=== PATIENT | female | born 1950 | race Caucasian/White ===

== ENCOUNTER 2019-08-25 09:47 | Outpatient (CLI) | payer MEDICARE, OTHER, SELFPAY ==
--- NOTE | 2019-08-25 09:56 | MM_ITS ---
WS: [id number] BILATERAL DIGITAL SCREENING MAMMOGRAPHY WITH CAD CLINICAL INFORMATION: SCREENING HISTORY: Screening mammogram. No current complaints. COMPARISON: May 06, 2018 TECHNIQUE: Bilateral CC and MLO views. FINDINGS: The breasts are composed of heterogeneous fibroglandular density tissue, which can limit the detectio n of small underlying mass lesions. No suspicious mass, asymmetry, calcifications, or architectural d istortion. No evidence of malignancy. MM/[id number] IMPRESSION: BI-RADS: 1-Negative FOLLOW UP: 1 Year Follow-up Recommend return to annual screening mammography.
== END 2019-08-25 09:48 | disposition home or self-care (01) ==
LOC: RADSHAW 09:53
PROVIDERS: PCP Internal Medicine; Visit Provider Internal Medicine
DX: Z12.31 Encounter for screening mammogram for malignant neoplasm of breast (principal)
CPT/HCPCS: 77067

== ENCOUNTER 2020-09-11 09:56 | Outpatient (CLI) | payer MEDICARE, OTHER, SELFPAY ==
--- NOTE | 2020-09-11 10:22 | MM_ITS ---
WS: [id number] SCREENING DIGITAL MAMMOGRAM WITH CAD HISTORY: SCREENING COMPARISON: 08/25/2019 and 05/06/2018 Bilateral CC and MLO views submitted. Computer aided detection analyzed. Breast composition: There are scattered areas of fibroglandular density. No suspicious masses, microc alcifications or architectural distortion. MM/[place] [id number] IMPRESSION: BI-RADS: 1-Negative FOLLOW UP: 1 Year Follow-up
== END 2020-09-11 09:57 | disposition home or self-care (01) ==
LOC: RADSHAW 10:16
PROVIDERS: PCP Internal Medicine; Visit Provider Internal Medicine
DX: Z12.31 Encounter for screening mammogram for malignant neoplasm of breast (principal)
CPT/HCPCS: 77067

== ENCOUNTER 2022-04-23 13:01 | Outpatient (CLI) | payer MEDICARE, OTHER, SELFPAY ==
--- NOTE | 2022-04-23 13:16 | MM_ITS ---
WS: [id number] BILATERAL 3D TOMOSYNTHESIS DIGITAL SCREENING MAMMOGRAPHY WITH CAD CLINICAL INFORMATION: SCREENING HISTORY: Screening mammogram. No current complaints. COMPARISON: September 11, 2020 TECHNIQUE: Bilateral CC and MLO views. FINDINGS: The breasts are composed of heterogeneous fibroglandular density tissue, which can limit the detectio n of small underlying mass lesions. No suspicious mass, asymmetry, calcifications, or architectural d istortion. No evidence of malignancy. Vascular calcification. MM/[place] [id number] IMPRESSION: BI-RADS: 2-Benign FOLLOW UP: 1 Year Follow-up Recommend return to annual screening mammography.
--- NOTE | 2022-04-23 13:19 | XR_ITS ---
WS: [id number] SCREENING DEXA SCAN [place] CLINICAL INFORMATION: STATUS,ASYMPTOMATIC POSTMENOPAUSAL COMPARISON: None. FINDINGS: The L1-L4 bone mineral density measures 0.788 g/cm2. This corresponds to a T score score of -3.3 and Z score of -1.5. Left femoral neck bone mineral density measures 0.623 g/cm2. This corresponds to a T score of -3.1 an d Z score of -1.5. Right femoral neck bone mineral density measures 0.723 g/cm2. This corresponds to a T score -2.3of an d Z score of -0.7. Mean femoral neck bone mineral density measures 0.673 g/cm2. This corresponds to a T score of -2.7 an d Z score of -1.1. XR/XR DEXA axial skeleton* [id number] IMPRESSION: Osteoporosis lumbar spine. Osteoporosis femoral necks. Patient's FRAX calculated 10 year probability for major osteoporotic fracture i s 23.6 % and osteoporotic hip fracture is 10.1%.
== END 2022-04-23 13:02 | disposition home or self-care (01) ==
LOC: RAD 13:05
PROVIDERS: PCP Internal Medicine; Visit Provider Internal Medicine
DX: Z12.31 Encounter for screening mammogram for malignant neoplasm of breast (principal); Z78.0 Asymptomatic menopausal state; M81.0 Age-related osteoporosis without current pathological fracture
CPT/HCPCS: 77063; 77067; 77080

== ENCOUNTER 2022-05-18 15:42 | Emergency (ER) | payer MEDICARE, OTHER, SELFPAY ==
[2022-05-18 16:01] VITALS: BP 131/66; PULSE 83; RESP 14; TEMP 37.1; O2SAT 98; BMI 27.4
--- NOTE | 2022-05-18 16:20 | XRR_ITS ---
PROCEDURE INFORMATION: Exam: XR Chest Exam date and time: 05/18/2022 4:43 PM Age: 72 years old Clinical indication: Other: Dizziness TECHNIQUE: Imaging protocol: Radiologic exam of the chest. Views: 1 view. COMPARISON: No relevant prior studies available. FINDINGS: Lungs: Unremarkable. No consolidation. Pleural spaces: Unremarkable. No pleural effusion. No pneumothorax. Heart/Mediastinum: Unremarkable. No cardiomegaly. Bones/joints: Unremarkable. XR/XR chest 1V portable [id number] IMPRESSION: No acute findings.
--- NOTE | 2022-05-18 16:20 | CTR_ITS ---
PROCEDURE INFORMATION: Exam: CT Head Without Contrast Exam date and time: 05/18/2022 4:36 PM Age: 72 years old Clinical indication: Dizziness TECHNIQUE: Imaging protocol: Computed tomography of the head without contrast. Radiation optimization: All CT scans at this facility use at least one of these dose optimization techniques: automated exposure control; mA and/or kV adjustment per patient size (includes targeted exams where dose is matched to clinical indication); or iterative reconstruction. REPORTING DATA: Count of CT and Cardiac NM exams in prior 12 months: This patient has received 0 known CTs and 0 known cardiac nuclear medicine studies in the 12 months prior to the current study. COMPARISON: No relevant prior studies available. RADIATION DOSE METRICS: Total DLP (mGy-cm): 1072.98 FINDINGS: Brain: Normal. No hemorrhage. Unremarkable white matter. No mass effect. Cerebral ventricles: No ventriculomegaly. Paranasal sinuses: Visualized sinuses are unremarkable. No fluid levels. Mastoid air cells: Visualized mastoid air cells are well aerated. Bones/joints: Unremarkable. No acute fracture. Soft tissues: Unremarkable. CT/CT head wo con* [id number] IMPRESSION: No acute intracranial abnormality.
--- NOTE | 2022-05-18 16:22 | ED_ITS ---
HPI - Dizziness General: Chief Complaint: Dizziness Stated Complaint: slow hr, dizziness Time Seen by Provider: 05/18/22 16:07 Source: patient and family History of Present Illness: HPI Narrative: 70-year-old female comes in with dizziness. The dizziness is a sensation of being off balance. She says when she looks to the left, she feels that she gets dizzy and feels that her eyes do not quite follow her head. It is more of a s ensation of spinning. She denies difficulty with coordination. She denies feeling lightheaded. She has had an associated right parietal temporal headache. No focal weakness or numbness. No difficulties with speech. No changes in her hearing. She denies cough or fever. This has been happening off and on for the past 2 to 3 days. Became more severe around 130 today. It actually had started today around 7 AM and was constant all day long Review of Systems Narrative: see HPI Physical Exam Const: COMMON NORMALS: no acute distress, patient oriented x3, healthy appearing, alert and well nourished HENMT: COMMON NORMALS: normocephalic, atraumatic, hearing grossly normal bilaterally, external ears normal, EAC's normal, TM's normal bilaterally, Normal external nose present and moist oral mucous membranes HEAD & SCALP: normocephalic and atraumatic NOSE: Normal external nose present EXTERNAL EAR: Yes external ears normal EXTERNAL AUDITORY CANAL: EAC's normal TYMPANIC MEMBRANE: TM's normal bilaterally Eye: COMMON NORMALS: Equal, round and reactive pupils present and EOMs intact bilaterally VISUAL JORDAN: Yes other (intact) ALIGNMENT: Yes alignment normal PERIORBITAL: periorbital findings normal PUPIL: Yes Equal, round and reactive pupils present Neck/C-Spine: COMMON NORMALS: supple CAROTIDS: No bruit Resp: COMMON NORMALS: normal respiratory effort, No use of accessory muscles and clear to auscultation bilaterally AUSCULTATION: clear to auscultation bilaterally Cardio: COMMON NORMALS: regular rate and regular rhythm RATE: regular rate RHYTHM: regular rhythm GI: COMMON NORMALS: Normal to inspection, nondistended, normoactive bowel sounds present, Soft to palpation and non-tender PALPATION: Yes Soft to palpation Extremity: OTHER: No tenderness or edema. Neuro: COMMON NORMALS: patient oriented x3, CN's II-XII intact bilaterally, moves all extremities, no focal motor deficits and no sensory deficits noted SENSORIUM/ORIENTATION: Yes alert COORDINATION/BALANCE: [id number]-ew-[id number] test normal, dtiv-wn-bzzj test normal, Normal rapid alternating movements of the distal upper extremity present (Neuro) and Normal rapid alternating movements of the distal lower extremity present (Neuro) COORDINATION: ofmefb-iv-yequ test normal, dkxg-tt-eshy test normal, rapid alternating movement UE normal and rapid alternating movement LE normal Course Vital Signs: Vital signs: Vital Signs Temperature 98.8 F 05/18/22 16:01 Pulse Rate 52 L 05/18/22 17:35 Respiratory Rate 16 05/18/22 17:35 Blood Pressure 133/66 05/18/22 17:35 Pulse Oximetry 98 05/18/22 17:35 Oxygen Delivery Me thod 05/18/22 17:35 MDM - Dizziness Medical Decision Making 72-year-old female who comes in with dizziness. Her dizziness is a feeling of the room spinning. No associated visual changes. She has had some right-sided parietal headaches associated with this. No weakness or numbness. No gait difficulty. No hearing loss. Neurologic exam is normal. No nystagmus. Suspect this is probably benign positional vertigo. We will obtain a CT head, chest x-ray, EKG and obtain labs as well as urinalysis.. We will try Antivert to see if that helps the patient's symptoms. CT head is negative for acute findings. The patient's laboratory studies are unremarkable. Her EKG, she is in a sinus rhythm with no acute changes. Patient ambulated to the bathroom with assistance. She did have persistent dizziness but again it is just the feeling of being off balance. No visual changes. No focal weakness. No associated symptoms. Cerebellar exam remains normal. I do not feel that the patient is in a CVA or cerebellar issue as she has a normal cerebellar exam. If the patient has persistent symptoms this week, she probably should have an MRI of her head to rule out cerebellopontine angle tumor. We will plan for discharge home on Antivert to take 4 times daily as needed. Patient's been instructed to return if her symptoms worsen or she develops any other associated symptoms. She needs to take the Antivert up to 4 times daily as needed. Push fluids. Return for symptoms worsen. Follow-up this week with her primary care doctor. Lab Data Remarkable including a normal white count, normal electrolytes. Glucose is 127. 05/18/22 16:14 05/18/22 16:14 Radiology Impressions Chest X-Ray 05/18/22 16:20 IMPRESSION: No acute findings. Head CT 05/18/22 16:20 IMPRESSION: No acute intracranial abnormality. Laboratory Results WBC 7.7 10^3/uL (4.0-10.0) 05/18/22 16:14 RBC 4.79 10^6/uL (4.1-5.3) 05/18/22 16:14 Hgb 13.7 g/dL (11.5-15.3) 05/18/22 16:14 Hct 41.8 % (37.0-47.0) 05/18/22 16:14 MCV 87.3 fl (81-99) 05/18/22 16:14 MCH 28.6 pg (28.0-34.0) 05/18/22 16:14 MCHC 32.8 g/dL (30.0-36.0) 05/18/22 16:14 RDW 12.8 % (12.1-15.1) 05/18/22 16:14 Plt Count 308 10^3/cmm (130-400) 05/18/22 16:14 MPV 9.5 fL (7.4-10.4) 05/18/22 16:14 Neut % (Auto) 65.2 % 05/18/22 16:14 Lymph % (Auto) 20.9 % 05/18/22 16:14 [place] % (Auto) 6.5 % 05/18/22 16:14 Eos % (Auto) 6.6 % 05/18/22 16:14 Baso % (Auto) 0.5 % 05/18/22 16:14 Neut # (Auto) 5.01 10^3/uL (1.8-7.7) 05/18/22 16:14 Lymph # (Auto) 1.6 10^3/uL (0.8-4.8) 05/18/22 16:14 [place] # (Auto) 0.5 10^3/uL (0.2-0.9) 05/18/22 16:14 Eos # (Auto) 0.5 10^3/uL (0.0-0.8) 05/18/22 16:14 Baso # (Auto) 0.0 10^3/uL (0.0-0.1) 05/18/22 16:14 Nucleated RBC % (auto) 0 % 05/18/22 16:14 Nucleated RBCs # 0.0 /100WBC 05/18/22 16:14 ESR 5 mm/hr (0-15) 05/18/22 16:14 Sodium 138 mmol/L (136-145) 05/18/22 16:14 Potassium 4.3 mmol/L (3.5-5.1) 05/18/22 16:14 Chloride 102 mmol/L (98-107) 05/18/22 16:14 Carbon Dioxide 25 mmol/L (22-29) 05/18/22 16:14 Anion Gap 15.3 (5-19) 05/18/22 16:14 BUN 17 mg/dL (8-23) 05/18/22 16:14 Creatinine 0.6 mg/dL (0.5-0.9) 05/18/22 16:14 GFR Calculation Not Reportable 05/18/22 16:14 Glucose 127 mg/dL (65-115) H 05/18/22 16:14 Calculated Osmolality 289 mOsm/kg (285-295) 05/18/22 16:14 Calcium 9.3 mg/dL (8.5-10.5) 05/18/22 16:14 Magnesium 2.2 mg/dL (1.7-2.3) 05/18/22 16:14 Total Bilirubin 0.6 mg/dL (0.15-1.2) 05/18/22 16:14 AST 24 U/L (0-32) 05/18/22 16:14 ALT 16 U/L (0-33) 05/18/22 16:14 Alkaline Phosphatase 122 U/L (35-105) H 05/18/22 16:14 Total Protein 6.8 g/dL (6.6-8.7) 05/18/22 16:14 Albumin 4.1 g/dL (3.5-5.2) 05/18/22 16:14 Globulin 2.7 g/dL (1.3-4.6) 05/18/22 16:14 Urine Color Yellow (Yellow) 05/18/22 17:30 Urine Appearance Cloudy (CLEAR) A 05/18/22 17:30 Urine pH 6.5 (5-7) 05/18/22 17:30 Ur Specific [place] 1.015 (1.005-1.030) 05/18/22 17:30 Urine Protein Neg (Negative) 05/18/22 17:30 Urine Glucose (UA) Norm (Normal) 05/18/22 17:30 Urine Ketones Negative (Negative) 05/18/22 17:30 Urine Blood Neg (Negative) 05/18/22 17:30 Urine Nitrate Negative (Negative) 05/18/22 17:30 Urine Bilirubin Neg (Negative) 05/18/22 17:30 Urine Urobilinogen Norm mg/dL (Negative) 05/18/22 17:30 Ur Leukocyte Esterase Negative (Negative) 05/18/22 17:30 Urine RBC 0-4 /hpf (0-2) H 05/18/22 17:30 Urine WBC 0-4 /hpf (0-5) H 05/18/22 17:30 Ur Squamous Epith Cells 0-4 /hpf (0-5) H 05/18/22 17:30 Amorphous Sediment 1+ /hpf 05/18/22 17:30 Urine Bacteria 1+ /hpf (NONE) H 05/18/22 17:30 Urine Mucus 1+ /hpf 05/18/22 17:30 EKG Data EKG 1: I personally reviewed and interpreted this EKG as follows: EKG interpretation date: 05/18/22 EKG interpretation time: 17:00 Interpretation: Status bradycardia, no acute ST segment changes. T wave flattening in lead III, V3 and V4 Discharge Plan Discharge Patient Disposition: Home Clinical Impression: Vertigo Condition: Stable Prescriptions: New Antivert 25 mg tablet,chewable 25 mg PO QID PRN (Reason: dizziness or vertigo) Qty: 30 0RF Discharge Orders: Discharge ED (Routine); Ordered 05/18/22 Ordered By: Leeann Dietrich Referrals: Edith Cuenca MD [Primary Care Provider] - Discharge Diet: Advance as tolerated Discharge Activity: Increase activity as tolerated Patient Instructions: Benign Paroxysmal Positional Vertigo (DC) Activity Restrictions/Additional Instructions: No driving or operating equipment until your dizziness is improved. Avoid rapid position changes or rapid turning of your head. Take the Antivert 4 times daily as needed for dizziness. Have someone stay with you for the next couple of days until your dizziness has improved. Make sure you are drinking plenty fluids. Return to the ER if your symptoms worsen or if you develop any other symptoms such as visual changes or focal weakness. 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
[2022-05-18] MEDS: meclizine 25 mg tablet PO (16:31)
[2022-05-18 16:35] LABS: Basophils % 0.5 %; Eosinophils # 0.5 10^3/uL (0.0-0.8); Eosinophils % 6.6 %; Hematocrit 41.8 % (37.0-47.0); Hemoglobin 13.7 g/dL (11.5-15.3); Lymphocytes # 1.6 10^3/uL (0.8-4.8); Lymphocytes % 20.9 %; Mean Corpuscular HGB Conc 32.8 g/dL (30.0-36.0); Mean Corpuscular Hemoglobin 28.6 pg (28.0-34.0); Mean Corpuscular Volume 87.3 fl (81-99); Mean Platelet Volume 9.5 fL (7.4-10.4); Monocytes # 0.5 10^3/uL (0.2-0.9); Monocytes % 6.5 %; Neutrophils # 5.01 10^3/uL (1.8-7.7); Neutrophils % 65.2 %; Nucleated Red Blood Cells % 0 %; Platelet Count 308 10^3/cmm (130-400); Red Blood Count 4.79 10^6/uL (4.1-5.3); Red Cell Distribution Width 12.8 % (12.1-15.1); White Blood Count 7.7 10^3/uL (4.0-10.0)
[2022-05-18 16:36] LABS: Erythrocyte Sedimentation Rate 5 mm/hr (0-15)
--- NOTE | 2022-05-18 16:58 | ECG_ITS ---
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 Measurements Intervals [place] Rate: 51 P: 35 UT: 153 QRS: -3 QRSD: 99 T: 37 QT: 437 QTc: 404 Interpretive Statements SINUS BRADYCARDIA WITH SINUS ARRHYTHMIA LOW QRS VOLTAGE IN PRECORDIAL LEADS [QRS DEFLECTION < 1.0 mV IN CHEST LEADS] INCOMPLETE RIGHT BUNDLE BRANCH BLOCK [90+ ms QRS DURATION, TERMINAL R IN V1/V2, 40+ ms S IN I/aVL/V4/V5/V6] MODERATE VOLTAGE CRITERIA FOR LVH, CONSIDER NORMAL VARIANT [MEETS CRITERIA IN ONE OF: R(aVL), S(V1), R(V5), R(V5/V6)+S(V1)] POSSIBLE ANTERIOR MYOCARDIAL INFARCTION , PROBABLY OLD [30 ms Q WAVE IN V3/V4, OR R < 0.2 mV IN V4] No previous ECG available for comparison Electronically Signed On 05-18-2022 21:23:20 [employer] by Jorge Hou M.D. [id number]
[2022-05-18 17:01] LABS: Alanine Aminotransferase 16 U/L (0-33); Albumin Level 4.1 g/dL (3.5-5.2); Alkaline Phosphatase 122 U/L (35-105); Anion Gap 15.3 (5-19); Aspartate Amino Transferase 24 U/L (0-32); Blood Urea Nitrogen 17 mg/dL (8-23); Calcium 9.3 mg/dL (8.5-10.5); Carbon Dioxide 25 mmol/L (22-29); Chloride 102 mmol/L (98-107); Creatinine Clr Calc Pharmacy 62.0648; Globulin 2.7 g/dL (1.3-4.6); Glucose 127 mg/dL (65-115); Magnesium 2.2 mg/dL (1.7-2.3); Osmolality Calculated 289 mOsm/kg (285-295); Potassium 4.3 mmol/L (3.5-5.1); Sodium 138 mmol/L (136-145); Total Bilirubin 0.6 mg/dL (0.15-1.2); Total Protein 6.8 g/dL (6.6-8.7)
[2022-05-18 17:35] VITALS: BP 133/66; PULSE 52; RESP 16; O2SAT 98
[2022-05-18 17:54] LABS: Add Urine Microscopic? YES; Amorphous Sediment Urine 1+ /hpf; Bacteria Urine 1+ /hpf; Bilirubin Urine Neg (Negative); Blood Urine Neg (Negative); Glucose Urine UA Norm (Normal); Ketones Urine Negative (Negative); Leukocyte Esterase Urine Negative (Negative); Mucus Urine 1+ /hpf; Nitrate Urine Negative (Negative); Protein Urine Neg (Negative); RBC Urine 0-4 /hpf (0-2); Specific Gravity, Urine 1.015 (1.005-1.030); Squamous Epithelial Cell Urine 0-4 /hpf (0-5); Urine Appearance Cloudy (CLEAR); Urine Color Yellow (Yellow); Urobilinogen Urine Norm (Negative); WBC Urine 0-4 /hpf (0-5); pH Urine 6.5 (5-7)
[2022-05-18 18:26] VITALS: BP 114/65; PULSE 52; RESP 18; TEMP 36.7; O2SAT 97
== END 2022-05-18 18:27 | disposition home or self-care (01) ==
PROVIDERS: Emergency Provider Emergency Medicine; PCP Internal Medicine
DX: R42 Dizziness and giddiness (principal)
CPT/HCPCS: 70450; 71045; 80053; 81001; 83735; 85025; 85651; 93005; 99285; J8597

== ENCOUNTER 2023-10-26 08:48 | Outpatient (CLI) | payer MEDICARE, OTHER, SELFPAY ==
--- NOTE | 2023-10-26 08:57 | MM_ITS ---
WS: [id number] BILATERAL SCREENING DIGITAL TOMOSYNTHESIS MAMMOGRAM WITH CAD HISTORY: SCREENING COMPARISON: 04/23/2022, 09/11/2020 Bilateral CC and MLO views with tomosynthesis and synthetic mammography submitted. Computer aided det ection analyzed. Breast composition: There are scattered areas of fibroglandular density. No suspicious masses, microc alcifications or architectural distortion. Scattered asymmetries in the upper outer quadrants of each breast are stable. MM/[id number] IMPRESSION: BI-RADS: 2-Benign FOLLOW UP: 1 Year Follow-up
== END 2023-10-26 08:49 | disposition home or self-care (01) ==
LOC: RAD 08:50
PROVIDERS: PCP Internal Medicine; Visit Provider Internal Medicine
DX: Z12.31 Encounter for screening mammogram for malignant neoplasm of breast (principal); R92.323 Mammographic fibroglandular density, bilateral breasts; N64.89 Other specified disorders of breast
CPT/HCPCS: 77063; 77067

== ENCOUNTER 2023-12-29 13:42 | Outpatient (CLI) | payer MEDICARE, OTHER, SELFPAY ==
--- NOTE | 2023-12-29 13:54 | XRR_ITS ---
PROCEDURE INFORMATION: Exam: XR Right Foot Exam date and time: 12/29/2023 1:59 PM Age: 73 years old Clinical indication: Pain; Right; Patient HX: Rolled ankle x2 days prior, swelling, bruising on lateral side of foot; Additional info: Pain in right foot TECHNIQUE: Imaging protocol: Radiologic exam of the right foot. Views: 3 or more views. COMPARISON: No relevant prior studies available. FINDINGS: Bones/joints: There are pronounced degenerative changes of the first metatarsophalangeal joint. 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 No joint dislocation. Linear lucencies at the head of the 1st metatarsal. Soft tissues: No significant soft tissue swelling. XR/XR foot RT min 3V* [id number] IMPRESSION: Linear lucencies at the head of the 1st metatarsal. Most probably related to medullary trabecula/nutrient channels or degenerative changes. Differential would include small fractures, however felt less likely.
== END 2023-12-29 13:43 | disposition home or self-care (01) ==
PROVIDERS: PCP Internal Medicine; Visit Provider Internal Medicine
DX: M79.671 Pain in right foot (principal)
CPT/HCPCS: 73630

== ENCOUNTER 2024-11-01 10:42 | Outpatient (CLI) | payer MEDICARE, OTHER, SELFPAY ==
--- NOTE | 2024-11-01 10:46 | MM_ITS ---
WS: [id number] BILATERAL 3D TOMOSYNTHESIS DIGITAL SCREENING MAMMOGRAPHY WITH CAD CLINICAL INFORMATION: SCREENING HISTORY: Screening mammogram. No current complaints. COMPARISON: 2023 TECHNIQUE: Bilateral CC and MLO views. FINDINGS: Scattered fibroglandular densities bilaterally. No suspicious focal mass, asymmetry, calcifications, or architectural distortion. No evidence of malignancy. Vascular calcification. Incidental punctate calcifications. MM/MM scr tomosynthesis [id number] IMPRESSION: DENSITY: There are scattered areas of fibroglandular density. BI-RADS: 2 - Benign. FOLLOW UP: 1 Year Follow-up Recommend return to annual screening mammography.
== END 2024-11-01 10:43 | disposition home or self-care (01) ==
LOC: RAD 10:43
PROVIDERS: PCP Internal Medicine; Visit Provider Internal Medicine
DX: Z12.31 Encounter for screening mammogram for malignant neoplasm of breast (principal); R92.323 Mammographic fibroglandular density, bilateral breasts; R92.1 Mammographic calcification found on diagnostic imaging of breast
CPT/HCPCS: 77063; 77067